=== PATIENT | male | born 1970 | race African-American/Black ===

== ENCOUNTER 2022-07-04 17:20 | Emergency (ER) | payer MEDICAID ==
[~2022-07-04] VITALS: Ht 190.5 cm; Wt 113.0 kg
[2022-07-04] VITALS (7 sets, daily range): BP systolic 122–150; BP diastolic 76–88
[2022-07-04] MEDS ORDERED: PREDNISONE10 MG PO (19:51)
[2022-07-04] MEDS ORDERED: FLEXERIL5 M1 PO (19:51)
[2022-07-04] MEDS ORDERED: NAPROXEN500 MG PO (19:51)
== END 2022-07-04 19:45 | disposition home or self-care (01) ==
LOC: ED 17:20
DX: M25.552 Pain in left hip (principal); F17.210 Nicotine dependence, cigarettes, uncomplicated; Z96.642 Presence of left artificial hip joint